=== PATIENT | male | born 1960 | race Caucasian/White ===

== ENCOUNTER → 2018-06-28 | Outpatient (CLI) | payer BC ==
--- NOTE | 2018-06-28 09:28 | PCVCIMAG ---
APPROVED REPORT Study performed: 06/28/2018 08:00:35 EXAM: Comprehensive 2D, Doppler, and color-flow Echocardiogram Patient Location: Echo lab Status: routine BSA: 1.75 HR: 70 bpmBP: 122/80 mmHg Rhythm: NSR Other Information Study Quality: Good Risk Factors: Cardiac Risk Factors: Hyperlipidemia Indications Dizziness and Vertigo Dyspnea Fatigue 2D Dimensions LVEF(%): 63.37 (>50%) IVSd: 8.52 (7-11mm)LVOT Diam: 19.00 (18-24mm) LVDd: 37.09 mm PWd: 8.57 (7-11mm)Ascending Ao: 26.14 (22-36mm) LVDs: 24.59 (25-40mm) Aortic Root: 23.73 mm LV Single Plane 4CH: 61.72 % LV Single Plane 2CH: 59.32 %Thayer's LVEF: 60.52 % Biplane EF: 62.6 % Volumes Left Atrial Volume (Systole) Single Plane 4CH: 29.05 mLSingle Plane 2CH: 20.98 mL LA ESV Index: 15.00 mL/m2 Aortic Valve AoV Peak Lucius.: 1.38 m/s AO Peak Gr.: 7.57 mmHgLVOT Max P.31 mmHg LVOT Max V: 1.15 m/s FRANNY Vmax: 2.27 cm2 Mitral Valve E/A Ratio: 0.8 MV Decel. Time: 287.09 ms MV E Max Lucius.: 0.53 m/s MV A Lucius.: 0.63 m/s IVRT: 62.28 ms TDI E/Lateral E': 4.82E/Medial E': 5.89 Medial E' Lucius.: 0.09 m/s Lateral E' Lucius.: 0.11 m/s Pulmonary Valve PV Peak Lucius.: 0.81 m/sPV Peak Gr.: 2.65 mmHg Pulmonary Vein P Vein S: 0.69 m/sP Vein A: 0.29 m/s P Vein D: 0.41 m/sP Vein A Dur.: 100.3 msec P Vein S/D Ratio: 1.68 Tricuspid Valve TR Peak Lucius.: 2.29 m/sRAP Estimate: 7.00 mmHg TR Peak Gr.: 20.98 mmHg PA Pressure: 28.00 mmHg Left Ventricle The left ventricle is normal size. There is normal LV segmental wall motion. There is normal left ventricular wall thickness. Left ventricular systolic function is normal. The left ventricular ejection fraction is within the normal range. LVEF is 60-65%. Grade I - abnormal relaxation pattern. Right Ventricle The right ventricle is normal size. The right ventricular systolic function is normal. Atria The left atrium size is normal. The right atrium size is normal. Aortic Valve The aortic valve is normal in structure. No aortic regurgitation. There is no aortic valvular stenosis. Mitral Valve The mitral valve is normal in structure. There is no mitral valve regurgitation noted. No evidence of mitral valve stenosis. Tricuspid Valve The tricuspid valve is normal in structure. Trace tricuspid regurgitation. Pulmonary artery pressure is 28 mmHg. Pulmonic Valve The pulmonary valve is normal in structure. There is no pulmonic valvular regurgitation. Great Vessels The aortic root is normal in size. IVC is normal in size and collapses >50% with inspiration. Pericardium There is no pericardial effusion. <Conclusion> Left ventricular systolic function is normal. There is normal LV segmental wall motion. LVEF is 60-65%. Mild diastolic dysfunction The aortic valve is normal in structure. No aortic regurgitation or stenosis. The mitral valve is normal in structure. No mitral valve regurgitation Trace tricuspid regurgitation. Pulmonary artery pressure is 28 mmHg. There is no pericardial effusion.
== END | disposition home or self-care (01) ==
LOC: PCVCIMAG 16:24
PROVIDERS: ATTEND Internal Medicine
DX: R42 Dizziness and giddiness (principal); R53.83 Other fatigue; R06.09 Other forms of dyspnea
CPT/HCPCS: 93306